=== PATIENT | male | born 1975 | race African-American/Black ===

== ENCOUNTER 2016-07-19 14:57 | Emergency (ER) | payer OTHER ==
[~2016-07-19] VITALS: Ht 175.3 cm; Wt 102.1 kg
--- NOTE | 2016-07-19 15:10 | NUR ---
AAOX3, CAME TO ER C/O INCREASING ANXIETY X 2 MONTHS S/P INCARCERATION. RESP IS EVEN AND UNLABORED WITH NAD NOTED. SKIN IS WARM AND DRY. AWAITING MD FOR EVAL.
[2016-07-19] MEDS ORDERED: ALPRAZOLAM 0.5 MG TABLET ONE (15:27)
[2016-07-19] MEDS ORDERED: ALPRAZOLAM 0.5 MG TABLET PO ONE (15:30)
--- NOTE | 2016-07-19 15:41 | NUR ---
PATIENT REFUSED BLOOD DRAW, KALANI PINEDA MADE AWARE.
[2016-07-19 15:44] LABS: APPEARANCE,URINE Clear (CLEAR); BILIRUBIN,URINE Negative (NEGATIVE); BLOOD, URINE Negative Ery/uL (NEGATIVE); COLOR,URINE Yellow (YELLOW); KETONES,URINE Negative (NEGATIVE); LEUKOCYTE ESTERASE ,URINE Negative (NEGATIVE); NITRITE, URINE Negative (NEGATIVE); PH,URINE 5.5 (5.0-8.0); PROTEIN,URINE Negative (NEGATIVE); UGLUCOSE Negative (NEGATIVE); UROBILINOGEN,URINE 0.2 EU/dL (0.2)
[2016-07-19 15:55] LABS: CANNABINOID, URINE POSITIVE (NEGATIVE); PHENCYCLIDINE SCREEN,URINE NEGATIVE (NEGATIVE)
[2016-07-19 16:11] VITALS: BP 138/89
--- NOTE | 2016-07-19 16:11 | NUR ---
Patient discharged to home in stable condition. Written and verbal after care instructions given. Patient verbalizes understanding of instruction.
== END 2016-07-19 16:12 | disposition home or self-care (01) ==
LOC: ER 14:57
DX: F41.9 Anxiety disorder, unspecified (principal)
CPT/HCPCS: 80305; 81000-TC; A4606; Z7610

== ENCOUNTER 2021-08-29 09:11 | Emergency (ER) | payer OTHER ==
[~2021-08-29] VITALS: Ht 175.3 cm; Wt 113.4 kg
--- NOTE | 2021-08-29 09:16 | NUR ---
BIB [facility] AND [employer] FROM [facility] C/O CHEST PAIN AND ANXIETY TODAY. HX HTN. AAOX4, BREATHING EVEN AND UNLABORED. NOT IN RESP DISTRESS. VS STABLE. [employer] AT BEDSIDE.
--- NOTE | 2021-08-29 09:18 | NUR ---
DR ARAUJO AT BEDSIDE
--- NOTE | 2021-08-29 09:45 | NUR ---
BLOOD SAMPLE OBTAINED AND SENT TO LAB
[2021-08-29 10:04] LABS: BASOPHILS % (AUTO) 0.7 % (0.0-2.0); EOSINOPHILS % (AUTO) 3.2 % (0.0-6.0); HEMATOCRIT 43 % (39-51); HEMOGLOBIN 14.8 g/dL (13.5-17.5); LYMPHOCYTES # (AUTO) 2.7 K/uL (0.8-4.8); LYMPHOCYTES % (AUTO) 37.7 % (20.0-44.0); MEAN CORPUSCULAR HGB CONC 34 g/dl (31.0-36.0); MEAN CORPUSCULAR VOLUME 95 fL (80-96); MONOCYTES # (AUTO) 0.5 K/uL (0.1-1.30); NEUTROPHILS # (AUTO) 3.7 K/uL (1.8-8.9); NEUTROPHILS % (AUTO) 51.4 % (43.0-81.0); PLATELET COUNT (AUTO) 301 K/uL (150-450); RED BLOOD CELL COUNT(AUTO) 4.56 MIL/uL (4.5-6.0); WHITE BLOOD COUNT (AUTO) 7.2 K/uL (4.3-11.0)
[2021-08-29 10:15] LABS: CALCIUM, SERUM 8.6 mg/dL (8.5-10.1); CARBON DIOXIDE 22 mmol/L (21-32); CHLORIDE 102 mmol/L (98-107); GLUCOSE 100 mg/dL (74-106); POTASSIUM 3.7 mmol/L (3.5-5.1); SODIUM SERUM 139 mmol/L (136-145); UREA NITROGEN, BLOOD 10 mg/dL (7-18)
--- NOTE | 2021-08-29 11:46 | NUR ---
PT SLEEPING IN BED, EASILY AROUSABLE TO VOICE AND TOUCH. WILL CONTINUE TO MONITOR
--- NOTE | 2021-08-29 11:54 | NUR ---
PATIENT IS HAVING APNEA FROM 5-12 SECONDS DESATURATING AT 88% DR ARAUJO AWARE.
--- NOTE | 2021-08-29 12:36 | NUR ---
IV removed. Catheter intact and site benign. Pressure and 4x4 applied to site. No bleeding noted.Patient discharged in custody of [employer] officers [facility] in stable condition. Written and verbal after care instructions given. [employer] Officers and patient verbalizes understanding of instruction.
[2021-08-29 12:38] VITALS: BP 136/54
== END 2021-08-29 12:45 ==
LOC: ER 09:16
DX: F41.9 Anxiety disorder, unspecified (principal); I10 Essential (primary) hypertension
CPT/HCPCS: 36415; 71045-TC; 80048-TC; 84484-TC; 85025-TC

== ENCOUNTER 2021-10-29 20:48 | Emergency (ER) | payer OTHER ==
[~2021-10-29] VITALS: Ht 175.3 cm; Wt 133.8 kg
[2021-10-29 21:37] VITALS: BP 116/66
[2021-10-29] MEDS ORDERED: FLUORESCEIN SODIUM OPHTH 1 EA STRIP ONE (21:44)
[2021-10-29] MEDS ORDERED: CLOT15CR27 TP (23:09)
== END 2021-10-29 23:30 | disposition home or self-care (01) ==
LOC: ER 20:56
DX: H11.33 Conjunctival hemorrhage, bilateral (principal); I10 Essential (primary) hypertension; F41.9 Anxiety disorder, unspecified

== ENCOUNTER 2024-09-10 19:53 | Inpatient (IN) | payer OTHER ==
[~2024-09-10] VITALS: Ht 175.3 cm; Wt 125.6 kg
[~2024-09-10 19:53] MED LIST: CLOT15CR27 TP
[2024-09-10] MEDS ORDERED: TDAP [DIPH/PERTUSSIS/TET] 0.5 ML VIAL IM ONE (22:21)
[2024-09-10] MEDS: TDAP [DIPH/PERTUSSIS/TET] 0.5 ML VIAL IM ONE (22:28)
[2024-09-10] MEDS: IV NS 0.9% 1,000 ML BAG IV ONE (22:46)
[2024-09-10 22:59] LABS: BASOPHILS # (AUTO) 0.1 K/uL (0.0-0.2); EOSINOPHILS # (AUTO) 0.4 K/uL (0.0-0.7); EOSINOPHILS % (AUTO) 4.8 % (0.0-6.0); HEMATOCRIT 45 % (39-51); HEMOGLOBIN 15.4 g/dL (13.5-17.5); LYMPHOCYTES # (AUTO) 1.7 K/uL (0.8-4.8); LYMPHOCYTES % (AUTO) 19.9 % (20.0-44.0); MEAN CORPUSCULAR HEMOGLOBIN 33 PG (26.0-33.0); MEAN CORPUSCULAR HGB CONC 34 g/dl (31.0-36.0); MEAN CORPUSCULAR VOLUME 97 fL (80-96); MONOCYTES # (AUTO) 0.6 K/uL (0.1-1.30); MONOCYTES % (AUTO) 7.2 % (2.0-12.0); NEUTROPHILS # (AUTO) 5.9 K/uL (1.8-8.9); NEUTROPHILS % (AUTO) 67.1 % (43.0-81.0); PLATELET COUNT (AUTO) 324 K/uL (150-450); RED BLOOD CELL COUNT(AUTO) 4.63 MIL/uL (4.5-6.0); RED CELL DISTRIBUTION WIDTH 13.3 % (11.5-15.0); WHITE BLOOD COUNT (AUTO) 8.7 K/uL (4.3-11.0)
[2024-09-10 23:12] LABS: CALCIUM, SERUM 7.9 mg/dL (8.5-10.1); CARBON DIOXIDE 29 mmol/L (21-32); CHLORIDE 104 mmol/L (98-107); CREATININE 0.8 mg/dL (0.6-1.3); GLUCOSE 92 mg/dL (74-106); POTASSIUM 3.5 mmol/L (3.5-5.1); SODIUM SERUM 141 mmol/L (136-145); UREA NITROGEN, BLOOD 5 mg/dL (7-18)
[2024-09-10 23:21] LABS: AMPHETAMINE, URINE NEGATIVE (NEGATIVE); BARBITURATE, URINE NEGATIVE (NEGATIVE); BENZODIAZEPINE, URINE NEGATIVE (NEGATIVE); CANNABINOID, URINE NEGATIVE (NEGATIVE); COCCAINE, URINE NEGATIVE (NEGATIVE); OPIATE, URINE NEGATIVE (NEGATIVE); PHENCYCLIDINE SCREEN,URINE NEGATIVE (NEGATIVE)
[2024-09-10 23:25] VITALS: BP 133/93; TEMP 97.5; O2SAT 95
[2024-09-10] MEDS ORDERED: ONDANSETRON HCL/PF 4 MG/2 ML VIAL IVP PRN (23:30)
[2024-09-10 23:36] VITALS: BP_SYST 132; BP_SYST 136; BP_DIAS 81; BP_DIAS 85; BP_DIAS 91; O2SAT 97
[2024-09-11] MEDS: IV 1/2NS 1000 ML 1,000 ML IV PRN (00:09)
[2024-09-11 04:00] VITALS: BP 115/58; TEMP 97.7; O2SAT 95
[2024-09-11] MEDS: ACETAMINOPHEN 325 MG TABLET PO PRN (04:37)
[2024-09-11 08:00] VITALS: BP 137/72; TEMP 98.6; O2SAT 94
[2024-09-11] MEDS: THIAMINE HCL 100 MG TABLET PO SCH (08:59)
[2024-09-11] MEDS: FOLIC ACID 1 MG TABLET PO SCH (08:59)
[2024-09-11] MEDS: PANTOPRAZOLE 40 MG TABLET.DR PO SCH (08:59)
[2024-09-11] MEDS: NEOMY SULF/BACITRAC ZN/POLY 15 GM TUBE TP SCH (09:03)
[2024-09-11] MEDS: LORAZEPAM 1 MG TABLET PO PRN (09:06)
[2024-09-11 09:37] LABS: BASOPHILS # (AUTO) 0.1 K/uL (0.0-0.2); BASOPHILS % (AUTO) 0.9 % (0.0-2.0); EOSINOPHILS # (AUTO) 0.4 K/uL (0.0-0.7); EOSINOPHILS % (AUTO) 5.3 % (0.0-6.0); HEMATOCRIT 42 % (39-51); HEMOGLOBIN 14.6 g/dL (13.5-17.5); LYMPHOCYTES # (AUTO) 1.6 K/uL (0.8-4.8); LYMPHOCYTES % (AUTO) 21.3 % (20.0-44.0); MEAN CORPUSCULAR HEMOGLOBIN 34 PG (26.0-33.0); MEAN CORPUSCULAR HGB CONC 35 g/dl (31.0-36.0); MEAN CORPUSCULAR VOLUME 97 fL (80-96); MONOCYTES # (AUTO) 0.7 K/uL (0.1-1.30); MONOCYTES % (AUTO) 8.5 % (2.0-12.0); NEUTROPHILS # (AUTO) 4.9 K/uL (1.8-8.9); PLATELET COUNT (AUTO) 330 K/uL (150-450); RED BLOOD CELL COUNT(AUTO) 4.33 MIL/uL (4.5-6.0); RED CELL DISTRIBUTION WIDTH 13.3 % (11.5-15.0); WHITE BLOOD COUNT (AUTO) 7.7 K/uL (4.3-11.0)
[2024-09-11 09:55] LABS: CREATININE 0.8 mg/dL (0.6-1.3); MAGNESIUM 1.6 mg/dL (1.8-2.4); PHOSPHORUS 3.3 mg/dL (2.5-4.9); POTASSIUM 3.2 mmol/L (3.5-5.1)
[2024-09-11] MEDS: FUROSEMIDE 40 MG/4 ML VIAL IV SCH (10:29)
[2024-09-11] MEDS: POTASSIUM CHLORIDE 20 MEQ TAB.PRT.SR PO SCH (10:35)
[2024-09-11 10:44] LABS: THYROID STIMULATING HORMONE 1.82 uIU/mL (0.358-3.74)
[2024-09-11 11:59] VITALS: BP 143/84; TEMP 97.5; O2SAT 96
[2024-09-11 12:36] VITALS: BP 143/84; TEMP 97.5; O2SAT 96
[2024-09-11 16:00] VITALS: BP 137/77; TEMP 99; O2SAT 95
[2024-09-11 20:00] VITALS: BP 149/89; TEMP 98.8; O2SAT 98
[2024-09-12] VITALS: BP 156/74; TEMP 98.5; O2SAT 96
[2024-09-12 04:00] VITALS: BP_SYST 133; BP_SYST 154; BP_SYST 164; BP_DIAS 107; BP_DIAS 115; BP_DIAS 78; TEMP 98.1; O2SAT 97
[2024-09-12 06:40] LABS: BASOPHILS # (AUTO) 0.1 K/uL (0.0-0.2); BASOPHILS % (AUTO) 0.7 % (0.0-2.0); EOSINOPHILS # (AUTO) 0.5 K/uL (0.0-0.7); EOSINOPHILS % (AUTO) 5.4 % (0.0-6.0); HEMATOCRIT 44 % (39-51); HEMOGLOBIN 15.2 g/dL (13.5-17.5); LYMPHOCYTES # (AUTO) 1.9 K/uL (0.8-4.8); MEAN CORPUSCULAR HEMOGLOBIN 34 PG (26.0-33.0); MEAN CORPUSCULAR HGB CONC 34 g/dl (31.0-36.0); MEAN CORPUSCULAR VOLUME 98 fL (80-96); MONOCYTES # (AUTO) 0.8 K/uL (0.1-1.30); NEUTROPHILS # (AUTO) 5.6 K/uL (1.8-8.9); NEUTROPHILS % (AUTO) 62.9 % (43.0-81.0); PLATELET COUNT (AUTO) 313 K/uL (150-450); RED BLOOD CELL COUNT(AUTO) 4.53 MIL/uL (4.5-6.0); RED CELL DISTRIBUTION WIDTH 13.3 % (11.5-15.0); WHITE BLOOD COUNT (AUTO) 8.8 K/uL (4.3-11.0)
[2024-09-12 07:07] LABS: ALBUMIN 3.1 g/dL (3.4-5.0); CALCIUM, SERUM 8.1 mg/dL (8.5-10.1); CREATININE 0.9 mg/dL (0.6-1.3); MAGNESIUM 1.5 mg/dL (1.8-2.4); PHOSPHORUS 4.3 mg/dL (2.5-4.9); POTASSIUM 2.9 mmol/L (3.5-5.1); TOTAL PROTEIN, SERUM 7.5 g/dL (6.4-8.2)
[2024-09-12 08:00] VITALS: BP 152/93; TEMP 97.7; O2SAT 97
[2024-09-12 08:32] VITALS: BP 152/93; TEMP 97.7; O2SAT 97
[2024-09-12] MEDS: POTASSIUM CHLORIDE 20 MEQ TAB.PRT.SR PO SCH (09:51)
[2024-09-12] MEDS: Magnesium 1GM/D5W 100ML PREMIX 100 ML IV SCH (09:51)
[2024-09-12] MEDS ORDERED: Folic Acid PO (09:54)
[2024-09-12] MEDS ORDERED: PANT40TA49 PO (09:54)
[2024-09-12] MEDS ORDERED: Thiamine HCL PO (09:54)
[2024-09-12] MEDS: MAGNESIUM HYDROXIDE 30 ML UDC PO PRN (10:03)
[2024-09-12 11:39] VITALS: BP 141/98; TEMP 98.1; O2SAT 95
[2024-09-12] MEDS: MAG HYDROX/AL HYDROX/SIMETH 30 ML UDC PO PRN (14:04)
[2024-09-12 15:05] VITALS: BP 149/101
== END 2024-09-12 15:25 | disposition home or self-care (01) | DRG 48 ==
LOC: ER 20:00 → TELE 22:39
PROVIDERS: ADMIT Nurse Practitioner Family; ATTEND Nurse Practitioner Family
DX: G90.89 Other disorders of autonomic nervous system (principal); G92.9 Unspecified toxic encephalopathy; I50.33 Acute on chronic diastolic (congestive) heart failure; I11.0 Hypertensive heart disease with heart failure; E66.9 Obesity, unspecified; F10.129 Alcohol abuse with intoxication, unspecified; K50.90 Crohn's disease, unspecified, without complications; S01.111A Laceration without foreign body of right eyelid and periocular area, initial encounter; F41.9 Anxiety disorder, unspecified; Y90.8 Blood alcohol level of 240 mg/100 ml or more; X58.XXXA Exposure to other specified factors, initial encounter; Y93.9 Activity, unspecified; Y92.009 Unspecified place in unspecified non-institutional (private) residence as the place of occurrence of the external cause; Z68.41 Body mass index [BMI] 40.0-44.9, adult; E87.6 Hypokalemia; E83.42 Hypomagnesemia
CPT/HCPCS: 36415; 70450-TC; 71045-TC; 80048-TC; 80053-TC; 80061-TC; 82962-TC; 83735-TC; 84100-TC; 84439-TC; 84443-TC; 84484-TC; 85025-TC; 87081-TC; 90715; 93307-TC; 98960; A4223; G0378; G0480; J1938; J3475; J3490; J7030

== ENCOUNTER 2024-10-14 18:53 | Emergency (ER) | payer OTHER ==
[~2024-10-14] VITALS: Ht 175.3 cm; Wt 120.2 kg
[~2024-10-14 18:53] MED LIST changes: -CLOT15CR27 TP; +Folic Acid PO; +PANT40TA49 PO; +Thiamine HCL PO
[2024-10-14] MEDS ORDERED: LORAZEPAM 1 MG TABLET ONE (21:14)
[2024-10-14] MEDS: LORAZEPAM 1 MG TABLET PO ONE (21:15)
[2024-10-14 21:35] VITALS: BP 149/87; TEMP 98.5; O2SAT 99
[2024-10-14] MEDS ORDERED: LORA-259 PO (21:46)
== END 2024-10-14 21:52 | disposition home or self-care (01) ==
LOC: ER 18:59
DX: F41.0 Panic disorder [episodic paroxysmal anxiety] (principal); I10 Essential (primary) hypertension; Z79.899 Other long term (current) drug therapy; Z60.2 Problems related to living alone

== ENCOUNTER 2024-11-15 13:56 | Emergency (ER) | payer OTHER ==
[~2024-11-15] VITALS: Ht 175.3 cm; Wt 122.0 kg
[~2024-11-15 13:56] MED LIST changes: +LORA-259 PO
[2024-11-15] MEDS ORDERED: LORAZEPAM 1 MG TABLET ONE (14:33)
[2024-11-15] MEDS: LORAZEPAM 1 MG TABLET PO ONE (14:35)
[2024-11-15 15:17] VITALS: BP 104/65; TEMP 98; O2SAT 98
== END 2024-11-15 15:17 | disposition home or self-care (01) ==
LOC: ER 13:56
DX: F41.0 Panic disorder [episodic paroxysmal anxiety] (principal); I10 Essential (primary) hypertension; Z79.899 Other long term (current) drug therapy; Z60.2 Problems related to living alone